=== PATIENT | female | born 1980 | race African-American/Black ===

== ENCOUNTER 2019-05-30 06:47 | Emergency (ER) | payer SELFPAY ==
[~2019-05-30] VITALS: Ht 165.1 cm; Wt 68.0 kg
[2019-05-30] MEDS ORDERED: IBUPROFEN 600MG TABLET PO STA (08:00)
[2019-05-30 08:13] VITALS: BP 135/83
== END 2019-05-30 10:08 | disposition home or self-care (01) ==
LOC: ER 06:47
DX: S39.012A Strain of muscle, fascia and tendon of lower back, initial encounter (principal); S16.1XXA Strain of muscle, fascia and tendon at neck level, initial encounter; R03.0 Elevated blood-pressure reading, without diagnosis of hypertension; V49.40XA Driver injured in collision with unspecified motor vehicles in traffic accident, initial encounter; Y93.89 Activity, other specified; Y92.410 Unspecified street and highway as the place of occurrence of the external cause
CPT/HCPCS: 72100; 99283

== ENCOUNTER 2020-12-13 18:43 | Emergency (ER) | payer MEDICAID ==
[~2020-12-13] VITALS: Ht 162.6 cm; Wt 64.0 kg
[2020-12-13] MEDS ORDERED: LIDOCAINE HCL/PF 1% 10 MG/ML 5ML VIAL IJ ONE (19:00)
[2020-12-13] MEDS ORDERED: ACETAMINOPHEN 325MG TABLET PO ONE (19:00)
[2020-12-13] MEDS ORDERED: TETANUS, DIPHTHERIA, PERTUSSIS VAC/PF 0.5ML (>7YR OLD) IM ONE (19:00)
[2020-12-13] MEDS ORDERED: BACITRACIN ZINC OINT UDPKT TOP ONE (19:00)
[2020-12-13 19:30] VITALS: BP 135/85
[2020-12-13] MEDS: ONDANSETRON 4MG ODT PO NR ×2 (20:33→20:35)
== END 2020-12-13 21:55 | disposition home or self-care (01) ==
LOC: ER 18:43
DX: S01.111A Laceration without foreign body of right eyelid and periocular area, initial encounter (principal); R51.9 Headache, unspecified; R03.0 Elevated blood-pressure reading, without diagnosis of hypertension; V43.52XA Car driver injured in collision with other type car in traffic accident, initial encounter; Y93.89 Activity, other specified; Y92.488 Other paved roadways as the place of occurrence of the external cause
CPT/HCPCS: 12013; 70450; 90715; 99284; A4217; J3490; Q0162; Z7610

== ENCOUNTER 2021-08-11 09:04 | Emergency (ER) | payer MEDICAID ==
[~2021-08-11] VITALS: Ht 165.1 cm; Wt 59.0 kg
[2021-08-11 11:12] LABS: BASOPHILS % 0.5 % (0.0-2.0); EOSINOPHILS % 3.8 % (0.0-5.0); HEMATOCRIT. 29.9 % (36.0-48.0); LYMPHOCYTES % 25.2 % (20.0-50.0); MEAN CORPUSCULAR HEMOGLOBIN 22.6 pg (28.0-32.0); MEAN CORPUSCULAR VOLUME 75.3 fL (81.0-99.0); MEAN PLATELET VOLUME 8.8 fl (7.4-10.4); MONOCYTES % 5.2 % (2.0-8.0); NEUTROPHILS % 65.3 % (40.0-76.0); PLATELET 394 x1000/uL (130-400); RED BLOOD CELL COUNT 3.97 mill/uL (4.2-5.4)
[2021-08-11 11:24] LABS: CHLORIDE 109 mEq/L (98-107)
[2021-08-11 11:37] LABS: B-HCG QUANTITATIVE < 1 mIU/mL (<3)
[2021-08-11 12:41] LABS: PLATELET ESTIMATE NORMAL
[2021-08-11 13:19] LABS: CLARITY URINE CLOUDY (CLEAR); COLOR URINE YELLOW (YELLOW); KETONES URINE TRACE (NEGATIVE); LEUKOCYTE ESTERASE URINE 1+ (NEGATIVE); NITRITE URINE NEGATIVE (NEGATIVE); OCCULT BLOOD URINE 3+ (NEGATIVE); PROTEIN URINE 2+ (NEGATIVE); SPECIFIC GRAVITY URINE 1.025 (1.005-1.030)
[2021-08-11 13:27] VITALS: BP 160/72
[2021-08-11] MEDS ORDERED: NITR-87 MT (13:37)
[2021-08-11] MEDS ORDERED: ACETAMINOPHEN 325MG TABLET PO ONE (13:45)
[2021-08-11] MEDS ORDERED: TRANEXAMIC ACID 1,000 MG/10 ML IV ONE (13:45)
== END 2021-08-11 15:32 | disposition home or self-care (01) ==
LOC: ER 09:04
DX: N93.9 Abnormal uterine and vaginal bleeding, unspecified (principal); Z98.890 Other specified postprocedural states
CPT/HCPCS: 36415; 76830; 76856; 80053; 81003; 84702; 85025; 86850; 86900; 96374; 99284